=== PATIENT | female | born 1965 | race Caucasian/White ===

== ENCOUNTER 2017-06-04 15:13 | Emergency (ER) | payer OTHER ==
[~2017-06-04] VITALS: Ht 180.3 cm; Wt 111.1 kg
[2017-06-04 15:47] VITALS: BP 124/85
[2017-06-04] MEDS ORDERED: KETOROLAC TROMETH 60MG/2ML VIAL IM ONE (16:15)
== END 2017-06-04 17:10 | disposition home or self-care (01) ==
LOC: ER 15:20
DX: M54.12 Radiculopathy, cervical region (principal); I10 Essential (primary) hypertension
CPT/HCPCS: 72040; 96372; 99284; J1885